=== PATIENT | male | born 1980 | race Caucasian/White ===

== ENCOUNTER 2024-03-28 15:25 | Emergency (ER) | payer OTHER ==
[~2024-03-28] VITALS: Ht 180.3 cm; Wt 102.1 kg
[~2024-03-28 15:25] MED LIST: CYCL10; FLUO20; OXYACE5T; Zofran Odt4 MG SL; [UNRECOGNIZED DRUG - REMARK]
[2024-03-28 15:46] VITALS: BP 132/70
[2024-03-28] MEDS ORDERED: Ketorolac Tromethamine 15mg Vial IM ONE (18:15)
[2024-03-28] MEDS ORDERED: OxyCODONE 10/Acetamin 325 TABLET PO ONE (18:20)
[2024-03-28] MEDS ORDERED: Percocet 5-3251 EACH PO (18:20)
== END 2024-03-28 18:33 | disposition home or self-care (01) ==
LOC: ER 15:25
DX: K40.90 Unilateral inguinal hernia, without obstruction or gangrene, not specified as recurrent (principal); Z79.899 Other long term (current) drug therapy
CPT/HCPCS: 76857; 96372; 99283-25; A9270; J1885

== ENCOUNTER 2024-04-30 12:23 | Emergency (ER) | payer OTHER ==
[~2024-04-30] VITALS: Ht 180.3 cm; Wt 102.1 kg
[~2024-04-30 12:23] MED LIST changes: +Percocet 5-3251 EACH PO
[2024-04-30 12:38] VITALS: BP 199/79
[2024-04-30 15:37] LABS: Source, Urine Clean Catch
[2024-04-30 16:14] LABS: Appearance, Urine Clear (Clear); Bilirubin, Urine Neg (Neg); Blood, Urine Neg (Neg); Glucose Qualitative, Urine Neg (Neg); Ketones, Urine Neg (Neg); Leukocyte Esterase, Urine Neg (Neg); Nitrite, Urine Neg (Neg); Protein, Urine Neg (Neg); Specific Gravity, Urine 1.005 (1.003-1.022); Urobilinogen, Urine NORM (Normal)
[2024-04-30 16:30] LABS: Color, Urine Pale Yellow (P-Yellow)
== END 2024-04-30 15:30 | disposition home or self-care (01) ==
LOC: ER 12:23
PROVIDERS: Student in an Organized Health Care Education/Training Program
DX: K40.90 Unilateral inguinal hernia, without obstruction or gangrene, not specified as recurrent (principal); Z87.891 Personal history of nicotine dependence
CPT/HCPCS: 76857; 81003; 99283-25

== ENCOUNTER 2024-06-03 06:41 | Day surgery (SDC) | payer OTHER ==
[~2024-06-03] VITALS: Ht 180.3 cm; Wt 98.6 kg
[2024-06-03] VITALS (9 sets, daily range): BP systolic 137–159; BP diastolic 72–98
[~2024-06-03 06:41] MED LIST changes: +CeFAZolin Sodium 2,000 MG in NS 100 ML IV SCH; +Lactated Ringer's 1,000 ML IV SCH
[2024-06-03] MEDS ORDERED: Bupivacaine 0.5% HCl 5 MG/ML 30MLVIAL ONE (07:04)
[2024-06-03] MEDS ORDERED: FentaNYL Citrate 50 MCG/ML 2 ML Injection ONE ×3 (07:09→09:52)
[2024-06-03] MEDS ORDERED: propofoL 20 ML IV ONE ×2 (07:09→07:11)
[2024-06-03] MEDS ORDERED: Lidocaine HCl 2% 20 ML MDV ONE (07:10)
[2024-06-03] MEDS ORDERED: Rocuronium Bromide 10 MG/ML 5ML Injection IV ONE (07:10)
[2024-06-03] MEDS ORDERED: Glycopyrrolate 0.2 MG/ML 5ML VIAL ONE (07:33)
--- NOTE | 2024-06-03 07:35 | NUR ---
History, Chart, Medications and Allergies reviewed before start of procedure. Patient up to Ambulate independently. Gait steady. Pre-Op teaching done. Pt verbalizes understanding. Patient confirms NPO status and agrees with scheduled surgery. Patient reports completing Chlorhexadine shower X2 prior to admission to hospital. Surgical site prepped with 2% Chlorhexidine cloth wipe. Lungs clear T/O to Auscultation. Patient States Post-Procedure ride home has been arranged. Small abrasion on right lower quadrant of abdomen, approx 3mm x3, from clippers where skin texture changed due to stretch dye. Patient declines pain or irritation; duck bill operator notified.
[2024-06-03] MEDS ORDERED: Dexamethasone Sod Phos 10 MG/ML 1ML VIAL ONE (07:43)
[2024-06-03] MEDS ORDERED: Ondansetron HCl 2 MG / ML 2ML Vial ONE (09:08)
[2024-06-03] MEDS ORDERED: Sugammadex Sodium 200 MG/2ML SDV (100 MG/ML) ONE (09:09)
[2024-06-03] MEDS ORDERED: HYDROcodone 5-APAP 325 TAB PO PRN (09:45)
[2024-06-03] MEDS ORDERED: Ketorolac Tromethamine 30mg Vial ONE (09:52)
--- NOTE | 2024-06-03 10:58 | NUR ---
DISCHARGE PT A&OX4, VSS/RA/C&DB, PAIN MANAGED/TREATED WITH FENT 50MCG AND TORADOL 30MG, NORCO 5/325 X1, ERLINDA PO CRACKERS AND H20, DRESSED SELF, IV DC'D. 3 EXOFIN LAP SITES CDI/MANAGER DRIVE, DC INS PROVIDED INCLUDING SPLINT/ICE/ELEVATE BLE AT REST W/SHORT FREQUENT AMBULATION AND NO LIFTING >10 LBS. LEFT VIA WC WITH ALL PERSONAL POSSESSIONS TO GO HOME WITH [facility] WITH DC INS AND 1 NORCO SCRIPT.
== END 2024-06-03 23:00 | disposition home or self-care (01) ==
LOC: ORSCMMR 06:41 → ORD 07:30 → ORSCMMR 23:00
PROVIDERS: Surgery
PROC: 8E0W4CZ Robotic Assisted Procedure of Trunk Region, Percutaneous Endoscopic Approach (ICD-10-PCS; principal; 2024-06-03 07:30)
PROC: 0YU64JZ Supplement Left Inguinal Region with Synthetic Substitute, Percutaneous Endoscopic Approach (ICD-10-PCS; principal; 2024-06-03 07:30)
DX: K40.90 Unilateral inguinal hernia, without obstruction or gangrene, not specified as recurrent (principal); F17.290 Nicotine dependence, other tobacco product, uncomplicated
CPT/HCPCS: A9270; C1781; J0690; J1100; J1885; J2405; J2704; J3010; J7120

== ENCOUNTER 2025-01-05 10:03 | Day surgery (SDC) | payer OTHER ==
[~2025-01-05] VITALS: Ht 188 cm; Wt 101.6 kg
[2025-01-05] VITALS (14 sets, daily range): BP systolic 123–159; BP diastolic 69–99
[~2025-01-05 10:03] MED LIST changes: +Acetaminophen 500 MG Tab PO SCH; +Chantix1 MG PO; +Chlorhexidine Mouth Care 15 ML UDC MT SCH; +OxyCODONE HCL 10 MG TABCR PO SCH; +Phenylephrine HCl 100 MCG/ML-NS 10MLSYR (1MG/10ML) ONE; +Ropivacaine 0.5% HCl/Pf 123.125 MG,EPINEPHrine HCL 0.25 MG,Ketorolac Tromethamine 15 MG... INFIL SCH; +Tranexamic Acid 100 ML IV SCH; +propofoL 0 ML IV ONE
[2025-01-05] MEDS ORDERED: Lactated Ringer's 1,000 ML IV SCH ×2 (10:55→12:40)
[2025-01-05] MEDS ORDERED: Albuterol 2.5 MG/3 ML VIAL INH PRN ×2 (10:55→11:45)
[2025-01-05] MEDS ORDERED: Midazolam HCl 1MG / ML 2ML Vial IV PRN (10:55)
[2025-01-05] MEDS ORDERED: Lidocaine HCl 1% 5 ML SYR INJ ONE (10:55)
[2025-01-05] MEDS ORDERED: Ondansetron HCl 2 MG / ML 2ML Vial IV PRN ×2 (11:45→12:05)
[2025-01-05] MEDS ORDERED: FentaNYL Citrate 50 MCG/ML 2 ML Injection IV PRN ×2 (11:45)
[2025-01-05] MEDS ORDERED: HYDROmorphone HCl/Pf 1MG SYR IV PRN ×2 (11:45→12:00)
[2025-01-05] MEDS ORDERED: Metoclopramide HCl 5MG / ML 2ML Vial IV PRN ×2 (11:45→12:05)
[2025-01-05] MEDS ORDERED: DiphenhydrAMINE HCL 25 MG Cap PO PRN (12:00)
[2025-01-05] MEDS ORDERED: Magnesium Hydroxide Conc 10 ML UDC PO PRN (12:05)
[2025-01-05] MEDS ORDERED: OxyCODONE HCL 5 MG TAB PO PRN ×2 (12:05)
[2025-01-05] MEDS ORDERED: Prochlorperazine Edisylate 10 mg Vial IV PRN (12:10)
[2025-01-05] MEDS ORDERED: Promethazine HCl 25 MG Tab PO PRN (12:10)
[2025-01-05] MEDS ORDERED: Bisacodyl 10 MG Supp PR PRN (12:10)
[2025-01-05] MEDS ORDERED: propofoL 150 ML IV ONE ×2 (13:16→14:57)
[2025-01-05] MEDS ORDERED: propofoL 20 ML IV ONE (13:17)
[2025-01-05] MEDS ORDERED: Ondansetron HCl 2 MG / ML 2ML Vial ONE (14:07)
[2025-01-05] MEDS ORDERED: Ketorolac Tromethamine 30mg Vial ONE (14:07)
[2025-01-05] MEDS ORDERED: Dexamethasone Sod Phos 10 MG/ML 1ML VIAL ONE (14:07)
--- NOTE | 2025-01-05 14:40 | NUR ---
01/05/25 1440 CARI SALAZAR RED SCRATCH LIKE WOUND ON LEFT PT HIP PRIOR TO OR BRING BACK. PROVIDER AWARE.
[2025-01-05] MEDS ORDERED: FentaNYL Citrate 50 MCG/ML 2 ML Injection ONE ×2 (14:52→16:28)
[2025-01-05] MEDS ORDERED: Acetaminophen 500 MG Tab PO SCH (16:00)
[2025-01-05] MEDS ORDERED: HYDROmorphone HCl/Pf 1MG SYR ONE (16:39)
[2025-01-05] MEDS ORDERED: Tranexamic Acid 100 ML IV ONE (16:56)
--- NOTE | 2025-01-05 17:20 | NUR ---
POST OP ARRIVAL TO SURGICAL UNIT VIA HOSPITAL BED, ALERT, ORIENTED, & APPROP. LUNGS CLEAR. HRR. L HIP w/ CLEAR MESH DRSG; SCANT SPOTTING NOTED. PPP. CRYOTHERAPY IN PLACE. ABLE TO WIGGLE TOES & PUMP ANKLES. DENIES PAIN. DENIES N/V; SNACKS GIVEN.
[2025-01-05] MEDS ORDERED: Ketorolac Tromethamine 15mg Vial IV SCH (18:00)
[2025-01-05] MEDS ORDERED: ACET500 PO (19:15)
[2025-01-05] MEDS ORDERED: ASPI81CH PO (19:20)
[2025-01-05] MEDS ORDERED: DOCU100 PO (19:21)
[2025-01-05] MEDS ORDERED: OXYC5 PO (19:21)
--- NOTE | 2025-01-05 19:40 | NUR ---
DISCHARGE PT HAS WORKED w/ THIS RN PRACTICING AMBULATION & STAIRS; STEADY GAIT & DID WELL w/ STAIRS. PAIN WELL CONTROLLED. EATING, DRINKING, & VOIDED x 1. AQUACEL PLACED OVER CLEAR MESH DRSG PER 's REQUEST. DRSGS & POLAR PACK SENT w/ PT. ESCORTED OUT VIA W/C.
[2025-01-05] MEDS ORDERED: Docusate Sodium 100 MG Cap PO SCH (21:00)
[2025-01-05] MEDS ORDERED: CeFAZolin Sodium 2,000 MG in NS 100 ML IV SCH (22:00)
[2025-01-06] MEDS ORDERED: Varenicline Tartrate 1 MG Tablet PO SCH (09:00)
[2025-01-06] MEDS ORDERED: Aspirin 81 MG Chew PO SCH (09:00)
== END 2025-01-05 19:45 | disposition home or self-care (01) ==
LOC: ORSCMMR 10:03 → ORD 11:30 → SURS 17:10 → ORSCMMR 19:45
PROVIDERS: Orthopaedic Surgery
PROC: 0SRB0JA Replacement of Left Hip Joint with Synthetic Substitute, Uncemented, Open Approach (ICD-10-PCS; principal; 2025-01-05 11:30)
DX: M16.0 Bilateral primary osteoarthritis of hip (principal); Z87.891 Personal history of nicotine dependence; Z79.899 Other long term (current) drug therapy
CPT/HCPCS: 72170; A9270; C1713; C1776; J0171; J0690; J0735; J1100; J1171; J1885; J2250; J2371; J2405; J2704; J2795; J3010; J7120